=== PATIENT | male | born 1985 | race Caucasian/White ===

== ENCOUNTER 2019-01-25 22:55 | Inpatient (IN) ==
[2019-01-25] MEDS ORDERED: ASPIRIN CHEW 324 MG PO STA (23:10)
[2019-01-25] MEDS ORDERED: METOPROLOL TARTRATE 1 MG/ML VIAL IV STA (23:12)
[2019-01-25 23:23] LABS: Basophils # (auto) 0.01 K/uL (0-0.2); Basophils % (auto) 0.1 %; Eosinophils # (auto) 0.11 K/uL (0-0.5); Eosinophils % (auto) 1.1 %; Hematocrit (blood only) 45.2 % (42-52); Hemoglobin 16.2 g/dL (14.0-18.0); Immature Granulocytes # (auto) 0.04 K/uL (0.00-0.02); Immature Granulocytes % (auto) 0.4 %; Lymphocytes # (auto) 3.52 K/uL (1.2-3.4); Lymphocytes % (auto) 33.9 %; Mean Corpuscular Hemoglobin 31.1 pg (25-34); Mean Corpuscular Hgb Conc 35.8 g/dL (32-36); Mean Corpuscular Volume 86.8 fL (80-100); Mean Platelet Volume 9.6 fL (7.4-10.4); Monocytes # (auto) 0.66 K/uL (0.11-0.59); Monocytes % (auto) 6.4 %; Neutrophils # (auto) 6.05 K/uL (1.4-6.5); Neutrophils % (auto) 58.1 %; Platelet Count 233 K/uL (130-400); RDW Coefficient of Variation 11.5 % (11.5-14.5); RDW Standard Deviation 36.7 fL (36.4-46.3); Red Blood Count 5.21 M/uL (4.7-6.1); White Blood Count 10.39 K/uL (4.8-10.8)
[2019-01-25 23:35] LABS: Partial Thromboplastin Time 25.9 Seconds (21.0-31.0); Prothrombin Time 10.6 Seconds (9.0-12.0)
[2019-01-25 23:44] LABS: Alanine Aminotransferase 23 U/L (12-78); Albumin Level 4.2 gm/dl (3.4-5.0); Aspartate Aminotransferase 15 U/L (15-37); BUN Creatinine Ratio 13.8 (10-20); Blood Urea Nitrogen 17 mg/dl (7-18); Calcium 9.1 mg/dl (8.5-10.1); Carbon Dioxide 29 mmol/L (21-32); Chloride 101 mmol/L (98-107); Creatinine Clr Calc Pharmacy 97.4 ml/min; Est GFR (African American) 89.5; Est GFR (Non-African American) 77.2; Glucose 96 mg/dl (70-99); Magnesium 2.2 mg/dl (1.8-2.4); Potassium 3.6 mmol/L (3.5-5.1); Sodium 138 mmol/L (136-145)
[2019-01-25 23:55] LABS: Alkaline Phosphatase 67 U/L (45-117); Bilirubin,Total 0.4 mg/dl (0.2-1); Globulin 4.2 gm/dl (2.5-4.0); Total Protein 8.4 gm/dl (6.4-8.2); Troponin I < 0.015 ng/ml (0-0.045)
[2019-01-26] MEDS: METOPROLOL TARTRATE 1 MG/ML VIAL IV PRN ×2 (00:01→00:21)
--- NOTE | 2019-01-26 00:25 | Emergency Department Note ---
Entered by Corona Miramontes acting as a scribe for History of Present Illness General Chief complaint: Arrhythmia/Palpitations Stated complaint: IRREGULAR HEARTBEAT Source: patient History of Present Illness Onset (ago): minute(s) 30 Location: chest Pain Consistency: + constant Quality: + other (irregular heart beat) Associated symptoms: + other (Negative for chest pain. Positive for a "stitch under his rib cage.") The patient is a 33 year old male who presents to the emergency department with complaints of a constant irregular heart beat beginning a half hour ago. The patient states that he and his were "being intimate" tonight, noting that afterwards, he noticed that he had an irregular heart beat that felt like muscle spasms. He reports that he had a similar episode 4 days ago. The patient states he has a "stitch under his rib cage" that has been there since yesterday. He notes that he is currently cutting back on his caffeine. He reports that he strained a chest muscle last week at the gym, but he states that his chest pain has resolved. Home Medications Home Medications Medication Instructions Recorded Confirmed Type fluticasone propionate 2 spray INTRANASAL DAILY 01/26/19 01/26/19 History loratadine 10 mg PO DAILY 01/26/19 01/26/19 History metoprolol succinate 25 mg PO QAM 30 Days #30 tab 01/26/19 Rx Allergies Allergy/AdvReac Type Severity Reaction Status Date / Time No Known Allergies Allergy Unverified 01/26/19 00:38 Past Med/Surg History Medical History No chronic problems Family History Other No significant family history Social History Preferred Language: Korean Communication Ability: Effective Turkey Boner Required: No Beliefs That Will Affect Care: None Current Living Situation: Spouse Other Information That Helps Us Care for You: No Feels Safe at Home: Yes Safety Concerns: Feels Safe At This Time Smoking Status: Never smoker Do You Dip or Chew Tobacco: No ; Hx Alcohol Use: No Hx Substance Use: No Review of Systems See HPI for pertinent positives & negatives. and A total of 10 systems reviewed and were otherwise negative Physical Exam Vital Signs Vital Signs - 24 hr 01/25/19 22:58 01/25/19 23:06 01/25/19 23:08 Temperature 36.7 C Temperature Source Oral Sepsis Action Taken by Nursing No Action Required Pulse Rate 98 H 142 H 165 H Pulse Rate [Apical] Pulse Rate from SpO2 Sensor 100 H 97 H Respiratory Rate 20 18 25 H Blood Pressure 129/93 145/87 H Blood Pressure [Right Arm] Blood Pressure Mean 105 106 Blood Pressure Mean [Right Arm] Pulse Oximetry 100 100 95 Oxygen Delivery Method Room Air 01/25/19 23:21 01/25/19 23:22 01/25/19 23:32 Temperature Temperature Source Sepsis Action Taken by Nursing Pulse Rate 145 H 140 H 140 H Pulse Rate [Apical] Pulse Rate from SpO2 Sensor 84 82 Respiratory Rate 12 23 Blood Pressure 145/87 H 155/71 H Blood Pressure [Right Arm] Blood Pressure Mean 99 Blood Pressure Mean [Right Arm] Pulse Oximetry 100 100 Oxygen Delivery Method 01/25/19 23:33 01/25/19 23:34 01/26/19 00:00 Temperature Temperature Source Sepsis Action Taken by Nursing Pulse Rate 121 H 131 H 108 H Pulse Rate [Apical] Pulse Rate from SpO2 Sensor 76 83 79 Respiratory Rate 18 16 16 Blood Pressure 118/83 102/75 Blood Pressure [Right Arm] Blood Pressure Mean 94 84 Blood Pressure Mean [Right Arm] Pulse Oximetry 100 100 96 Oxygen Delivery Method 01/26/19 00:01 01/26/19 00:10 01/26/19 00:14 Temperature Temperature Source Sepsis Action Taken by Nursing Pulse Rate 122 H 115 H Pulse Rate [Apical] 97 H Pulse Rate from SpO2 Sensor 79 85 Respiratory Rate 15 14 25 H Blood Pressure 102/75 130/77 Blood Pressure [Right Arm] 130/78 Blood Pressure Mean 94 Blood Pressure Mean [Right Arm] 95 Pulse Oximetry 98 98 Oxygen Delivery Method Room Air 01/26/19 00:15 01/26/19 00:21 01/26/19 00:30 Temperature Temperature Source Sepsis Action Taken by Nursing Pulse Rate 107 H 109 H 117 H Pulse Rate [Apical] Pulse Rate from SpO2 Sensor 76 74 Respiratory Rate 20 15 Blood Pressure 130/77 Blood Pressure [Right Arm] Blood Pressure Mean Blood Pressure Mean [Right Arm] Pulse Oximetry 98 96 Oxygen Delivery Method 01/26/19 00:44 01/26/19 01:00 01/26/19 01:01 Temperature Temperature Source Sepsis Action Taken by Nursing Pulse Rate 106 H 73 73 Pulse Rate [Apical] Pulse Rate from SpO2 Sensor 69 59 L 74 Respiratory Rate 17 15 16 Blood Pressure 116/70 104/65 Blood Pressure [Right Arm] Blood Pressure Mean 85 78 Blood Pressure Mean [Right Arm] Pulse Oximetry 97 95 95 Oxygen Delivery Method 01/26/19 01:30 Temperature Temperature Source Sepsis Action Taken by Nursing Pulse Rate 77 Pulse Rate [Apical] Pulse Rate from SpO2 Sensor 75 Respiratory Rate 15 Blood Pressure 108/55 L Blood Pressure [Right Arm] Blood Pressure Mean 72 Blood Pressure Mean [Right Arm] Pulse Oximetry 97 Oxygen Delivery Method Vital signs reviewed. General: Well-appearing 33 year old male, in no significant distress. HEENT: No scleral icterus, PERRLA, neck supple. Atraumatic. Cardiovascular: Rapid and irregular, no extra sounds. Pulmonary: Clear to auscultation bilaterally, normal work of breathing. Abdomen: Soft, nontender, nondistended, positive bowel sounds. Musculoskeletal: Atraumatic, no peripheral edema. Neurologic: Patient awake alert and oriented x 3 Skin: Warm, dry, no rash Course 2307: The patient was evaluated in room B3. A complete history and physical exam was performed. 0130: I rechecked the patient. 0200: Upon reevaluation, the patient is stable. I discussed the findings and the treatment plan with the patient. He expresses agreement and understanding. I spoke with Dr. Mcnair of the [facility]. The patient will be evaluated for further management. Consultations Consultation #1: I [facility] the [facility] He will evaluate the patient for further management. Time: 02:00 Administered Medications Discontinued Medications Aspirin (Aspirin) 324 mg PO NOW STA Stop: 01/25/19 23:11 Last Admin: 01/25/19 23:21 Dose: 324 mg Documented by: [id number] Diltiazem HCl (Cardizem) 10 mg IV NOW STA Stop: 01/26/19 00:40 Last Admin: 01/26/19 00:42 Dose: 10 mg Documented by: [id number] Cosigned by: [id number] Fluticasone Propionate (Flonase) 2 sprays NA DAILY STEPHANIE Stop: 02/25/19 08:59 Last Admin: 01/26/19 08:23 Dose: Not Given Documented by: [id number] Heparin Sodium/Dextrose (Heparin Sodium/Dextrose) 25,000 units in 500 mls @ 29 mls/hr IV .[id number] STEPHANIE; Protocol Stop: 02/25/19 02:44 Last Titration: 01/26/19 09:45 Dose: 0 units/hr, 0 mls/hr Documented by: [id number] Cosigned by: [id number] Titration: 01/26/19 07:17 Dose: 1,450 units/hr, 29 mls/hr Documented by: [id number] Cosigned by: [id number] Admin: 01/26/19 03:05 Dose: 1,450 units/hr, 29 mls/hr Documented by: [id number] Cosigned by: [id number] Lactated Ringer's (Lr) 1,000 mls @ 500 mls/hr IV .Q2H ONE Stop: 01/26/19 04:33 Last Infusion: 01/26/19 07:17 Dose: 0 mls/hr Documented by: [id number] Infusion: 01/26/19 04:45 Dose: 0 mls/hr Documented by: [id number] Admin: 01/26/19 04:00 Dose: 500 mls/hr Documented by: [id number] Ioversol (Optiray 320 125ml) 125 ml IV ONCE PRN PRN Reason: Interaction Checking Stop: 01/30/19 03:36 Last Admin: 01/26/19 03:38 Dose: 116 ml Documented by: [id number] Loratadine (Claritin) 10 mg PO DAILY STEPHANIE Stop: 02/25/19 08:59 Last Admin: 01/26/19 08:22 Dose: 10 mg Documented by: [id number] Metoprolol Succinate (Toprol Xl) 25 mg PO QAM STEPHANIE Stop: 02/25/19 09:44 Last Admin: 01/26/19 11:00 Dose: 25 mg Documented by: [id number] Metoprolol Tartrate (Lopressor) 5 mg IV NOW STA Stop: 01/25/19 23:13 Last Admin: 01/25/19 23:21 Dose: 5 mg Documented by: [id number] Metoprolol Tartrate (Lopressor) 5 mg IV Q5M PRN PRN Reason: Tachycardia Stop: 02/24/19 23:54 Last Admin: 01/26/19 00:21 Dose: 5 mg Documented by: [id number] Admin: 01/26/19 00:01 Dose: 5 mg Documented by: [id number] Metoprolol Tartrate (Lopressor) 12.5 mg PO BID STEPHANIE Stop: 02/25/19 02:34 Last Admin: 01/26/19 02:52 Dose: 12.5 mg Documented by: [id number] Metoprolol Tartrate (Lopressor) 12.5 mg PO NOW STA Stop: 01/26/19 04:45 Last Admin: 01/26/19 06:01 Dose: 12.5 mg Documented by: [id number] Pantoprazole S[facility] (Pro[facility]ix) [facility] [place] Stop: 02/25/19 09:14 Last Admin: 01/26/19 09:48 Dose: 40 mg Documented by: [id number] Potassium Chloride (Klor-Con M20) 40 meq PO NOW STA Stop: 01/26/19 01:58 Last Admin: 01/26/19 02:14 Dose: 40 meq Documented by: [id number] Medical Decision Making Differential Diagnosis Differential diagnosis: Etiologies such as shingles, musculoskeletal pain, pericarditis, myocarditis, cardiac ischemia, pericardial tamponade, pneumonia, pneumothorax, pleural effusion, hemothorax, pleurisy, aortic pathology, pulmonary embolism, intra- abdominal process, as well as others were considered. Medical Records Attestation: I reviewed the patient's medical records. Home Medications Current Medication List: was personally reviewed by me Laboratory Data Attestation: I reviewed the patient's lab results. Result diagrams: 01/25/19 23:12 01/25/19 23:12 Lab Results 01/25/19 01/25/19 01/25/19 Range/Units 23:12 23:12 23:12 WBC 10.39 (4.8-10.8) K/uL RBC 5.21 (4.7-6.1) M/uL Hgb 16.2 (14.0-18.0) g/dL Hct 45.2 (42-52) % MCV 86.8 (80-100) fL MCH 31.1 (25-34) pg MCHC 35.8 (32-36) g/dL RDW Std Deviation 36.7 (36.4-46.3) fL RDW Coeff of Tyrese 11.5 (11.5-14.5) % Plt Count 233 (130-400) K/uL MPV 9.6 (7.4-10.4) fL Immature Gran % (Auto) 0.4 % Neut % (Auto) 58.1 % Lymph % (Auto) 33.9 % [place] % (Auto) 6.4 % Eos % (Auto) 1.1 % Baso % (Auto) 0.1 % Immature Gran # (Auto) 0.04 H (0.00-0.02) K/uL Neut # (Auto) 6.05 (1.4-6.5) K/uL Lymph # (Auto) 3.52 H (1.2-3.4) K/uL [place] # (Auto) 0.66 H (0.11-0.59) K/uL Eos # (Auto) 0.11 (0-0.5) K/uL Baso # (Auto) 0.01 (0-0.2) K/uL PT 10.6 (9.0-12.0) Seconds INR 1.0 (0.9-1.1) APTT 25.9 (21.0-31.0) Seconds PTT Ratio 1.0 Sodium 138 (136-145) mmol/L Potassium 3.6 (3.5-5.1) mmol/L Chloride 101 (98-107) mmol/L Carbon Dioxide 29 (21-32) mmol/L Anion Gap 8.0 (3-11) BUN 17 (7-18) mg/dl Creatinine 1.23 (0.6-1.4) mg/dl Est Cr Clr Drug Dosing 97.4 ml/min Est GFR ( Amer) 89.5 Est GFR (Non-Af Amer) 77.2 BUN/Creatinine Ratio 13.8 (10-20) Glucose 96 (70-99) mg/dl Calcium 9.1 (8.5-10.1) mg/dl Magnesium 2.2 (1.8-2.4) mg/dl Total Bilirubin 0.4 (0.2-1) mg/dl AST 15 (15-37) U/L ALT 23 (12-78) U/L Alkaline Phosphatase 67 (45-117) U/L Total Creatine Kinase 172 (39-308) U/L Troponin I < 0.015 (0-0.045) ng/ml Total Protein 8.4 H (6.4-8.2) gm/dl Albumin 4.2 (3.4-5.0) gm/dl Globulin 4.2 H (2.5-4.0) gm/dl Albumin/Globulin Ratio 1.0 (0.9-2) Lipase 207 (73-393) U/L TSH 3.470 (0.300-4.500) uIu/ml Lyme Disease IgG Ab (Negative) Lyme Disease IgM Ab (Negative) 01/25/19 Range/Units 23:12 WBC (4.8-10.8) K/uL RBC (4.7-6.1) M/uL Hgb (14.0-18.0) g/dL Hct (42-52) % MCV (80-100) fL MCH (25-34) pg MCHC (32-36) g/dL RDW Std Deviation (36.4-46.3) fL RDW Coeff of Tyrese (11.5-14.5) % Plt Count (130-400) K/uL MPV (7.4-10.4) fL Immature Gran % (Auto) % Neut % (Auto) % Lymph % (Auto) % [place] % (Auto) % Eos % (Auto) % Baso % (Auto) % Immature Gran # (Auto) (0.00-0.02) K/uL Neut # (Auto) (1.4-6.5) K/uL Lymph # (Auto) (1.2-3.4) K/uL [place] # (Auto) (0.11-0.59) K/uL Eos # (Auto) (0-0.5) K/uL Baso # (Auto) (0-0.2) K/uL PT (9.0-12.0) Seconds INR (0.9-1.1) APTT (21.0-31.0) Seconds PTT Ratio Sodium (136-145) mmol/L Potassium (3.5-5.1) mmol/L Chloride (98-107) mmol/L Carbon Dioxide (21-32) mmol/L Anion Gap (3-11) BUN (7-18) mg/dl Creatinine (0.6-1.4) mg/dl Est Cr Clr Drug Dosing ml/min Est GFR ( Amer) Est GFR (Non-Af Amer) BUN/Creatinine Ratio (10-20) Glucose (70-99) mg/dl Calcium (8.5-10.1) mg/dl Magnesium (1.8-2.4) mg/dl Total Bilirubin (0.2-1) mg/dl AST (15-37) U/L ALT (12-78) U/L Alkaline Phosphatase (45-117) U/L Total Creatine Kinase (39-308) U/L Troponin I (0-0.045) ng/ml Total Protein (6.4-8.2) gm/dl Albumin (3.4-5.0) gm/dl Globulin (2.5-4.0) gm/dl Albumin/Globulin Ratio (0.9-2) Lipase (73-393) U/L TSH (0.300-4.500) uIu/ml Lyme Disease IgG Ab Negative (Negative) Lyme Disease IgM Ab Negative (Negative) Imaging Data Attestation: I personally reviewed and interpreted this imaging study as follows: My Impression: CHEST X-RAY: No infiltrate. No failure. Normal mediastinum. ECG Data Attestation: I personally reviewed and interpreted this ECG as follows: Indication: palpitations Rate (beats per minute): 162 Rhythm: atrial fibrillation (with RVR) Comparison ECG Date: from (10/15/2015) Change: the following changes noted (Compared to prior, Afib has replaced a normal sinus rhythm and ST changes are new.) Additional Comments: Nonspecific ST changes, possible LVH. EKG 2: Done at 0057 on 01/26/2019. Rate controlled Afib 61, PVC, LVH, J point elevation indicative of early repolarization, QTC 372. Blood Pressure Blood Pressure Findings: Normal blood pressure Blood Pressure Disposition: further management by hospitalist MDM Narrative This pt was evaluated and appeared to be in no distress. IV access was obtained and lab work was drawn. PT was placed on the purification operator. IV metoprolol 5 mg was administered with little improvement of HR. Additional doses of IV metoprolol 5 mg x 2 were given, pt remained in afib w RVR from 90- 120bpm. Pt was then given IV cardizem 10 mg with good rate control, but remained in a fib. Lab work is fairly reassuring. Dr Ch of the hospitalist service was consulted for further management. Pt was informed of the findings and is agreeable to plan. Impression & Plan New onset atrial fibrillation Discharge Plan Visit Data *Final* Discharge Date/Time: 01/26/19 03:16 Chief Complaint: Arrhythmia/Palpitations Stated Complaint: IRREGULAR HEARTBEAT ED Provider: Shani Perez Discharge Problem: New onset atrial fibrillation Patient Disposition: Admitted As Inpatient Discharge Instructions Interventions: ED Discharge Assessment Last Done: 01/26/19 03:16 The scribe's documentation has been prepared under my direction and personally reviewed by me in its entirety. I confirm that the note above accurately reflects all work, treatment, procedures, and medical decision making performed by me.
[2019-01-26] MEDS ORDERED: dilTIAZem HCl 5 MG/ML 5 ML VIAL IV STA (00:39)
[2019-01-26] MEDS ORDERED: POTASSIUM CHLORIDE 20 MEQ TABCR PO STA (01:57)
[2019-01-26] MEDS ORDERED: LACTATED RINGER'S 1,000 ML IV ONE (02:34)
[2019-01-26] MEDS ORDERED: Heparin IV Standard *NO* Bolus STA (02:34)
[2019-01-26] MEDS ORDERED: METOPROLOL TARTRATE 25 MG TAB PO SCH ×2 (02:35→21:00)
--- NOTE | 2019-01-26 02:36 | History & Physical Report ---
Date of Service January 26, 2019 Assessment & Plan (1) New onset atrial fibrillation: Rule out PE as possible precipitant given pleuritic subcostal complaints PCU Lopressor for rate control IV heparin for thromboembolic prophylaxis CT chest PE study TTE, Cardiology consult RE new onset A. fib DVT prophylaxis. Heparin Full code History of Present Illness Chief Complaint: Palpitations Primary Care Provider: Luis Eduardo Hector MD History obtained from patient and records. Medical history significant for allergic rhinitis, migraine. Recent confinement under ENT service November 2011 for R parotidectomy for pleomorphic adenoma. 4 days ago patient was watching television when he felt transient palpitations lasting about 30 seconds associated with spasm-like discomfort in the left chest nonradiating. Spontaneous resolution. Some chest soreness after workout in the gym last week. Transient palpitations on 2 occasions in the last 12 years as per patient recollection. Patient consulted urgent care center 3 days ago for unusual heartbeat episode. EKG showed sinus bradycardia as per outpatient note. Consideration for Holter monitoring in the future. Patient and were having sex last night when he noted recurrence of uncomfortable palpitations this time associated with pleuritic right subcostal discomfort and shortness of breath. No cough symptoms. Usual caffeine intake, denies alcohol intake this week, usual stress at home/work, antihistaminic intake for allergies. At the ER, patient noted to be in rapid A. fib, cardiac rate 90-160s. Cardiac rate currently 90s after IV Metoprolol, Cardizem administration. Patient still uncomfortable from irregular heartbeat. 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 Allergies Allergy/AdvReac Type Severity Reaction Status Date / Time No Known Allergies Allergy Unverified 01/26/19 00:38 Home Medications Home Medications Medication Instructions Recorded Confirmed Type fluticasone propionate 2 spray INTRANASAL DAILY 01/26/19 01/26/19 History loratadine 10 mg PO DAILY 01/26/19 01/26/19 History metoprolol succinate 25 mg PO QAM 30 Days #30 tab 01/26/19 Rx Past Med/Surg History Medical History No chronic problems Family History Other No significant family history Social History Preferred Language: Guyanese Communication Ability: Effective Route Deliverer Required: No Beliefs That Will Affect Care: None Current Living Situation: Spouse Other Information That Helps Us Care for You: No Feels Safe at Home: Yes Safety Concerns: Feels Safe At This Time Smoking Status: Never smoker Do You Dip or Chew Tobacco: No ; Hx Alcohol Use: No Hx Substance Use: No Review of Systems Review of Systems: As per HPI, all 10 systems reviewed, all other ROS negative Physical Exam Physical Exam: GENERAL: Comfortable, pleasant, slightly anxious, no respiratory distress SKIN: Normal color, warm HEENT: [place] palpebral conjunctivae, no ptosis, dry buccal mucosa NECK : Supple, no tenderness CHEST : CTA, no tenderness HEART : Tachycardic, irregular, no obvious murmurs ABDOMEN: Some distention, R upper quadrant tenderness EXTREMITIES : No LE swelling/tenderness, no other conspicuous deformities noted NEUROLOGIC : Coherent, no facial asymmetry, no other gross focality Results & Data Vital Signs (Past 12 Hours) Vital Signs Temp Pulse Pulse Resp BP BP Pulse Ox 01/26/19 01:30 77 15 108/55 L 97 01/26/19 01:01 73 16 95 01/26/19 01:00 73 15 104/65 95 01/26/19 00:44 106 H 17 116/70 97 01/26/19 00:30 117 H 15 96 01/26/19 00:21 109 H 130/77 01/26/19 00:15 107 H 20 98 01/26/19 00:14 115 H 25 H 130/77 98 01/26/19 00:10 97 H 14 130/78 98 01/26/19 00:01 122 H 15 102/75 01/26/19 00:00 108 H 16 102/75 96 01/25/19 23:34 131 H 16 100 01/25/19 23:33 121 H 18 118/83 100 01/25/19 23:32 140 H 23 100 01/25/19 23:22 140 H 12 155/71 H 100 01/25/19 23:21 145 H 145/87 H 01/25/19 23:08 165 H 25 H 95 01/25/19 23:06 142 H 18 145/87 H 100 01/25/19 22:58 36.7 C 98 H 20 129/93 100 Laboratory Results Laboratory Results WBC 10.39 K/uL (4.8-10.8) 01/25/19 23:12 RBC 5.21 M/uL (4.7-6.1) 01/25/19 23:12 Hgb 16.2 g/dL (14.0-18.0) 01/25/19 23:12 Hct 45.2 % (42-52) 01/25/19 23:12 MCV 86.8 fL (80-100) 01/25/19 23:12 MCH 31.1 pg (25-34) 01/25/19 23:12 MCHC 35.8 g/dL (32-36) 01/25/19 23:12 RDW Std Deviation 36.7 fL (36.4-46.3) 01/25/19 23:12 RDW Coeff of Tyrese 11.5 % (11.5-14.5) 01/25/19 23:12 Plt Count 233 K/uL (130-400) 01/25/19 23:12 MPV 9.6 fL (7.4-10.4) 01/25/19 23:12 Immature Gran % (Auto) 0.4 % 01/25/19 23:12 Neut % (Auto) 58.1 % 01/25/19 23:12 Lymph % (Auto) 33.9 % 01/25/19 23:12 [place] % (Auto) 6.4 % 01/25/19 23:12 Eos % (Auto) 1.1 % 01/25/19 23:12 Baso % (Auto) 0.1 % 01/25/19 23:12 Immature Gran # (Auto) 0.04 K/uL (0.00-0.02) H 01/25/19 23:12 Neut # (Auto) 6.05 K/uL (1.4-6.5) 01/25/19 23:12 Lymph # (Auto) 3.52 K/uL (1.2-3.4) H 01/25/19 23:12 [place] # (Auto) 0.66 K/uL (0.11-0.59) H 01/25/19 23:12 Eos # (Auto) 0.11 K/uL (0-0.5) 01/25/19 23:12 Baso # (Auto) 0.01 K/uL (0-0.2) 01/25/19 23:12 PT 10.6 Seconds (9.0-12.0) 01/25/19 23:12 INR 1.0 (0.9-1.1) 01/25/19 23:12 APTT 25.9 Seconds (21.0-31.0) 01/25/19 23:12 PTT Ratio 1.0 01/25/19 23:12 Sodium 138 mmol/L (136-145) 01/25/19 23:12 Potassium 3.6 mmol/L (3.5-5.1) 01/25/19 23:12 Chloride 101 mmol/L (98-107) 01/25/19 23:12 Carbon Dioxide 29 mmol/L (21-32) 01/25/19 23:12 Anion Gap 8.0 (3-11) 01/25/19 23:12 BUN 17 mg/dl (7-18) 01/25/19 23:12 Creatinine 1.23 mg/dl (0.6-1.4) 01/25/19 23:12 Est Cr Clr Drug Dosing 97.4 ml/min 01/25/19 23:12 Est GFR ( Amer) 89.5 01/25/19 23:12 Est GFR (Non-Af Amer) 77.2 01/25/19 23:12 BUN/Creatinine Ratio 13.8 (10-20) 01/25/19 23:12 Glucose 96 mg/dl (70-99) 01/25/19 23:12 Calcium 9.1 mg/dl (8.5-10.1) 01/25/19 23:12 Magnesium 2.2 mg/dl (1.8-2.4) 01/25/19 23:12 Total Bilirubin 0.4 mg/dl (0.2-1) 01/25/19 23:12 AST 15 U/L (15-37) 01/25/19 23:12 ALT 23 U/L (12-78) 01/25/19 23:12 Alkaline Phosphatase 67 U/L (45-117) 01/25/19 23:12 Troponin I < 0.015 ng/ml (0-0.045) 01/25/19 23:12 Total Protein 8.4 gm/dl (6.4-8.2) H 01/25/19 23:12 Albumin 4.2 gm/dl (3.4-5.0) 01/25/19 23:12 Globulin 4.2 gm/dl (2.5-4.0) H 01/25/19 23:12 Albumin/Globulin Ratio 1.0 (0.9-2) 01/25/19 23:12 TSH 3.470 uIu/ml (0.300-4.500) 01/25/19 23:12 Diagnostic Findings Chest x-ray as per my interpretation no cardiomegaly/congestion: EKG as per my interpretation : Rate 60, normal axis, A. fib, J-point elevation anterior lateral leads, LVH, PVCs
[2019-01-26] MEDS ORDERED: HEPARIN SODIUM/DEXTROSE 25,000 UNITS/500 ML BAG IV SCH (02:45)
[2019-01-26] MEDS ORDERED: HEPARIN 25000 UNIT/500 ML D5W IV ONE (02:46)
[2019-01-26 02:59] LABS: Creatine Kinase 172 U/L (39-308)
[2019-01-26 03:23] LABS: Lipase 207 U/L (73-393)
[2019-01-26] MEDS ORDERED: OPTIRAY 320 125ml IV PRN (03:37)
[2019-01-26 03:55] VITALS: O2SAT 96
[2019-01-26 04:40] LABS: Lyme Ab IgG w/WB Rflx Negative (Negative); Lyme Ab IgM w/WB Rflx Negative (Negative)
[2019-01-26] MEDS ORDERED: METOPROLOL TARTRATE 25 MG TAB PO STA (04:44)
--- NOTE | 2019-01-26 07:03 | XRay Report ---
XR chest 1V portable HISTORY: Atrial fibrillation. COMPARISON: None. FINDINGS: The lungs are clear. Cardiac silhouette is normal in size. No pleural effusions. No pneumot horax. IMPRESSION: No acute process. Electronically signed by: Chay Yoder M.D. 01/26/2019 7:02 AM
[2019-01-26] MEDS ORDERED: LORazepam 0.25 MG/0.5 ML VIAL IV PRN (07:09)
[2019-01-26] MEDS ORDERED: ACETAMINOPHEN 325 MG TAB PO PRN (07:09)
[2019-01-26] MEDS ORDERED: TRAMADOL HCL 50 MG TABLET PO PRN (07:09)
[2019-01-26] MEDS ORDERED: PROMETHAZINE HCL 12.5 MG in SODIUM CHLORIDE 0.9% 50 ML IV PRN (07:09)
[2019-01-26 07:26] LABS: Appearance Urine Clear (Clear); Bilirubin Urine Negative (Negative); Blood Urine Negative (Negative); Color Urine Yellow; Glucose Urine UA Negative (Negative); Ketones Urine Negative (Negative); Leukocyte Esterase Urine Negative (Negative); Nitrite Urine Negative (Negative); Protein Urine Negative (Negative); Specific Gravity Urine 1.018 (1.000-1.030); Urobilinogen Urine Negative (Negative); pH Urine 7.5 (4.5-7.5)
--- NOTE | 2019-01-26 07:33 | CT Scan Report ---
CHEST CTA for PULMONARY ARTERIES CT DOSE: 358.28 mGy.cm HISTORY: Atrial fibrillation. Assess for pulmonary embolus. TECHNIQUE: Multiaxial CT images of the chest were performed following the intravenous administration of contrast to evaluate the pulmonary arteries. Maximal intensity projection images were also obtaine d. A dose lowering technique was utilized adhering to the principles of ALARA. COMPARISON STUDY: None. FINDINGS: There is a normal caliber thoracic aorta with no evidence for dissection. There is no evide nce for pulmonary embolus. No pleural effusions. No pneumothorax. The liver and spleen are unremarkab le. No mediastinal or hilar lymphadenopathy. The central airways are patent. The lungs are clear. The main pulmonary artery is mildly dilated at 3.4 cm. This raises the possibility of pulmonary arterial hypertension. The heart is normal in size. IMPRESSION: 1. No evidence for pulmonary embolus. 2. Mildly dilated main pulmonary artery measuring 3.4 cm in diameter. This raises the possibility of pulmonary arterial hypertension. Follow-up nonemergent echocardiogram is recommended for further eval uation. Electronically signed by: Chay Yoder M.D. 01/26/2019 7:31 AM
[2019-01-26 07:54] LABS: Amphetamines+Metham, Urine Neg (Neg); Barbiturates, Urine Neg (Neg); Benzodiazepine, Urine Neg (Neg); Cocaine, Urine Neg (Neg); MDMA (Ecstacy), Urine Neg (Neg); Methadone, Urine Neg (Neg); Opiate, Urine Neg (Neg); Phencyclidine, Urine Neg (Neg)
[2019-01-26 08:17] VITALS: BP 107/72; TEMP 98.2
--- NOTE | 2019-01-26 08:43 | Cardiology Consultation ---
Date of Consultation January 26, 2019 Assessment & Plan (1) New onset atrial fibrillation: 33-year-old male presented with atrial fibrillation rapid ventricular response, onset at home at approximately 10:30 PM 01/25/2019, he converted to sinus rhythm spontaneously this morning 01/26/2019 at 6:34 AM. He was therefore in atrial fibrillation less than 12 hours. He believes he had similar symptoms for just a few seconds a few days ago. His [id number] score is 0 predicting a low risk of cardio embolic stroke. Repeat EKG performed today 01/26/2019 reveals normal sinus rhythm at 62 bpm with evidence of high voltage and early repolarization, and I believe this is consistent with the patient's thin body habitus. A bedside echocardiogram was performed, and my preliminary review of the images reveals normal LVEF, with normal myocardial thickness, there is no evidence of underlying left ventricular hypertrophy. CT scan recent question of mild dilatation of the pulmonary artery at 3.4 cm. There is no stigmata of pulmonary hypertension noted on his echocardiogram with normal right ventricular chamber size and systolic function. At this time, I would classify the patient's atrial fibrillation is being lone atrial fibrillation or perhaps paroxysmal atrial fibrillation given his history of palpitations about 5 days ago. His recent chest discomfort sounds like it is musculoskeletal. His mother has a history of bicuspid aortic valve with aortic valve replacement at the age of 50, his aortic valve is trileaflet morphology without any significant stenosis or regurgitation. In terms of stroke prophylaxis, I recommend discontinuation of his heparin. Given his low predicted risk of cardio embolic stroke, I do not think he needs to be on anticoagulation therapy. The most recent atrial fibrillation guidelines suggest that the prophylactic benefit of aspirin in patients with paroxysmal atrial fibrillation is negligible, and therefore it is no longer recommended. Would recommend discharging the patient on metoprolol succinate 25 mg by mouth daily. Disposition: I have requested an outpatient 7-day 0 bus monitor to be placed after he has been on the metoprolol for about a week, on 02/02/2019 or shortly thereafter. I have requested a cardiology follow-up with me or 1 of my colleagues and 3 to [address] we have the results of the monitor afterward. The mother will be helpful in terms of determining his underlying atrial fibrillation burden. We discussed that he should minimize his alcohol and caffeine use, but it sounds like he already abides by this. He is going to reduce his stress this weekend, and he is going to have a colleague of his breech on Tuesday. The above was discussed in the company of his spouse. Questions were answered to the patient's satisfaction. If he has recurrent epis odes while on beta-dionicio therapy, I think it would be a reasonable candidate for flecainide therapy on a chronic basis for rhythm suppression. He is stable for discharge from my standpoint. I have discontinued his heparin. History of Present Illness Attending Physician: Rosalio Hardin MD History of Present Illness Andrew Santana is a 33 year old male seen in cardiology consultation per the request of Dr. Bradford for the evaluation of palpitations with findings of atrial fibrillation with rapid ventricular response. 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 He states that last evening 01/25/2019 at 1030, he felt an abrupt onset of heart "fluttering". This persisted prompting him to come to the emergency room. EKG performed on arrival to the emergency room revealed atrial fibrillation with rapid ventricular response 162 bpm. LVH noted by voltage criteria, with ST segment depression suggestive of rate related ischemia, versus LVH with strain pattern. Medication therapy overnight included starting a heparin infusion for stroke prophylaxis, he also received 10 mg of IV diltiazem, and 12.5 mg of oral metoprolol with improved rate control. Repeat EKG performed at 12:57 AM revealed atrial fibrillation, with improved rate control, ventricular rate 62 beats per minute with 1 PVC versus PAC with aberrant conduction, ongoing suggestion of LVH by voltage criteria with diffuse J-point elevation consistent with early repolarization. Review of telemetry reveals that he converted to sinus rhythm this morning at 634, without significant conversion pause. He is currently feeling well. He states that he had initially felt similar symptoms 5 days ago on Tuesday, went for 30 seconds he felt a similar fluttering. He also notes recent chest discomfort when he takes a deep breath in. He notes that 12 days ago he had been performing weight training at the gym. He did chest dips, which he does on occasion, but have not been part of his routine recently, and he felt that he had strained something in his chest. He also notes that he has a history of passing out spells with past symptoms consistent with vasovagal syncope. His father also has this. He describes a recent episode where he was eating spicy chicken wings and he had his symptoms consistent with his gastro esophageal reflux disease, he felt heavy perspiration, and felt like he was going to pass out. Past Medical History: 1. 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 2. Seasonal allergies 3. GERD 4. (vasovagal) syncope Family History: Mother, alive at about age 55, had h/o aortic valve replacement surgery at the age of 50 with history of congenitally bicuspid aortic valve. Also has atrial fibrillation and is on sotalol. 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 Non-smoker. Allergies Allergy/AdvReac Type Severity Reaction Status Date / Time No Known Allergies Allergy Unverified 01/26/19 00:38 Home Medications Home Medications Medication Instructions Recorded Confirmed Type fluticasone propionate 2 spray INTRANASAL DAILY 01/26/19 01/26/19 History loratadine 10 mg PO DAILY 01/26/19 01/26/19 History Patient History Medical History No chronic problems Family History Other No significant family history Social History Preferred Language: Hebrew Communication Ability: Effective Underground Drill Operator Required: No Beliefs That Will Affect Care: None Current Living Situation: Spouse Other Information That Helps Us Care for You: No Feels Safe at Home: Yes Safety Concerns: Feels Safe At This Time Smoking Status: Never smoker Do You Dip or Chew Tobacco: No ; Hx Alcohol Use: No Hx Substance Use: No Review of Systems Review of Systems: All systems reviewed & are unremarkable except as noted in HPI & below Physical Exam Physical Exam: Temp Pulse Resp BP Pulse Ox 36.8 C 64 16 107/72 96 01/26/19 07:15 01/26/19 07:15 01/26/19 07:15 01/26/19 07:15 01/26/19 07:15 Constitutional: WD/WN, vitals as above Respiratory: normal respiratory effort, lungs clear to auscultation Cardiovascular: RRR, no murmur, no edema Gastrointestinal (Abdomen): normal bowel sounds, soft, nontender, no hepatosplenomegaly Skin: no rashes, warm and dry Neurologic: PERRL, EOMI, accommodation nl, no face palsy, no dysarthria Psychiatric: A+Ox3, euthymic affect Results & Data Vital Signs (Past 12 Hours) Vital Signs Temp Pulse Pulse Resp BP BP Pulse Ox 01/26/19 07:15 36.8 C 64 16 107/72 96 01/26/19 03:46 37 C 109 H 18 119/82 96 01/26/19 03:01 98 H 13 01/26/19 03:00 105 H 23 113/82 97 01/26/19 02:31 86 19 99 01/26/19 02:30 89 15 109/82 98 01/26/19 02:20 87 21 108/79 98 01/26/19 02:01 104 H 15 96 01/26/19 02:00 96 H 16 104/69 96 01/26/19 01:30 77 15 108/55 L 97 01/26/19 01:01 73 16 95 01/26/19 01:00 73 15 104/65 95 01/26/19 00:44 106 H 17 116/70 97 01/26/19 00:30 117 H 15 96 01/26/19 00:21 109 H 130/77 01/26/19 00:15 107 H 20 98 01/26/19 00:14 115 H 25 H 130/77 98 01/26/19 00:10 97 H 14 130/78 98 01/26/19 00:01 122 H 15 102/75 01/26/19 00:00 108 H 16 102/75 96 01/25/19 23:34 131 H 16 100 01/25/19 23:33 121 H 18 118/83 100 01/25/19 23:32 140 H 23 100 01/25/19 23:22 140 H 12 155/71 H 100 01/25/19 23:21 145 H 145/87 H 01/25/19 23:08 165 H 25 H 95 01/25/19 23:06 142 H 18 145/87 H 100 01/25/19 22:58 36.7 C 98 H 20 129/93 100 Laboratory Results Cardiac Enzymes 01/25/19 Range/Units 23:12 AST 15 (15-37) U/L Troponin I < 0.015 (0-0.045) ng/ml Coagulation 01/25/19 Range/Units 23:12 PT 10.6 (9.0-12.0) Seconds APTT 25.9 (21.0-31.0) Seconds CBC 01/25/19 Range/Units 23:12 WBC 10.39 (4.8-10.8) K/uL RBC 5.21 (4.7-6.1) M/uL Hgb 16.2 (14.0-18.0) g/dL Hct 45.2 (42-52) % Plt Count 233 (130-400) K/uL Neut # (Auto) 6.05 (1.4-6.5) K/uL Lymph # (Auto) 3.52 H (1.2-3.4) K/uL [place] # (Auto) 0.66 H (0.11-0.59) K/uL Eos # (Auto) 0.11 (0-0.5) K/uL Baso # (Auto) 0.01 (0-0.2) K/uL Comprehensive Metabolic Panel 01/25/19 Range/Units 23:12 Sodium 138 (136-145) mmol/L Potassium 3.6 (3.5-5.1) mmol/L Chloride 101 (98-107) mmol/L Carbon Dioxide 29 (21-32) mmol/L BUN 17 (7-18) mg/dl Creatinine 1.23 (0.6-1.4) mg/dl Glucose 96 (70-99) mg/dl Calcium 9.1 (8.5-10.1) mg/dl AST 15 (15-37) U/L ALT 23 (12-78) U/L Alkaline Phosphatase 67 (45-117) U/L Total Protein 8.4 H (6.4-8.2) gm/dl Albumin 4.2 (3.4-5.0) gm/dl Intake and Output 01/25/19 01/26/19 01/26/19 22:59 06:59 14:59 Intake Total 375 / 375 121.8 / 121.8 Output Total 1100 / 1100 Balance -725 / -725 121.8 / 121.8 Intake: IV 375 / 375 121.8 / 121.8 HEPARIN SODIUM/DEXTROSE 25,000 121.8 / 121.8 units In 500 ml @ 1,450 UNITS/ HR 29 mls/hr IV .[id number] [facility] Rx #:[id number] Lr 1,000 ml @ 500 mls/hr IV . 375 / 375 0 / 0 Q2H ONE Rx#:[id number] Output: Urine 1100 / 1100 Other: Other Intake Source Sips Weight 83.2 kg 83.2 kg Diagnostic Findings EKG tracings, as outlined above. Medications Administered Current Inpatient Medications Acetaminophen (Tylenol) 650 mg PO Q4H PRN PRN Reason: Pain or Fever Stop: 02/25/19 07:08 Fluticasone Propionate (Flonase) 2 sprays NA DAILY [facility] Stop: 02/25/19 08:59 Last Admin: 01/26/19 08:23 Dose: Not Given Documented by: Heparin Sodium/Dextrose (Heparin Sodium/Dextrose) 25,000 units in 500 mls @ 29 mls/hr IV .[id number] [facility]; Protocol Stop: 02/25/19 02:44 Last Titration: 01/26/19 07:17 Dose: 1,450 units/hr, 29 mls/hr Documented by: Lorazepam (Ativan) 0.25 mg in 0.5 mls @ 0.5 mls/min IV Q4H PRN PRN Reason: Anxiety Stop: 02/25/19 07:08 Promethazine HCl 12.5 mg/ (Sodium Chloride) 50.5 mls @ 202 mls/hr IV Q6H PRN PRN Reason: Nausea And Vomiting Stop: 02/25/19 07:08 Loratadine (Claritin) 10 mg PO DAILY [facility] Stop: 02/25/19 08:59 Last Admin: 01/26/19 08:22 Dose: 10 mg Documented by: Metoprolol Tartrate (Lopressor) 25 mg PO BID [facility] Stop: 02/25/19 20:59 Tramadol HCl (Ultram) 25 - 50 mg PO Q4H PRN PRN Reason: Pain Stop: 02/25/19 07:08
[2019-01-26] MEDS ORDERED: LORATADINE 10 MG TAB PO SCH (09:00)
[2019-01-26] MEDS ORDERED: FLUTICASONE PROPIONATE NA SPR 16 GM BTL SCH (09:00)
[2019-01-26] MEDS ORDERED: PANTOprazole 40 MG TAB PO SCH (09:15)
[2019-01-26] MEDS ORDERED: METOPROLOL SUCC 25MG EXT REL TAB PO SCH (09:45)
--- NOTE | 2019-01-26 10:18 | Hospitalist Progress Note ---
Date of Service January 26, 2019 Assessment & Plan (1) New onset atrial fibrillation: CT Chest: No pulmonary embolism Echo: per Dr. Edward- High Worker: A bedside echocardiogram was performed, and my preliminary review of the images reveals normal LVEF, with normal myocardial thickness, there is no evidence of underlying left ventricular hypertrophy. -- converted to sinus rhythm the next day High Worker Dr. Edward consulted, recommend Metoprolol XL 25mg po daily, manager monitoring in 1 week c/o Cardiology clinic Follow up with [facility] in 3-4 weeks Disposition ff up with PCP as outlined in DC instructions ff up with [facility] High Worker as outlined above plan of care discussed with patient and his at bedside in detail they are comfortable, understanding with the plan of care Subjective ff up for atrial fibrillation patient converted to sinus rhythm this morning seen resting in bed, comfortable, in good spirits states he feels fine overall denies chest pain, palpitations, dyspnea, dizziness ambulating with no problems no bleeding states he is mostly back to his baseline states he is ready and would like to be discharged today Review of Systems Review of Systems: All systems reviewed & are unremarkable except as noted in HPI & below Physical Exam Physical Exam: General- oriented x 3, not in distress, speaks in sentences with no effort or accessory muscle use Head- atraumatic Eyes- PERRL, EOMI, anicteric ENT- oropharynx clear Neck- supple, no JVD, no adenopathy, no thyromegaly; carotids +2/2, no bruits appreciated Lungs- clear to auscultation bilaterally, no rales/wheezes Heart- normal rate, regular rhythm; no murmur, no gallop, no rub appreciated Abdomen- normal bowel sounds, nondistended, soft, nontender, no masses or hepatosplenomegaly Extremities- no pretibial edema, no calf tenderness; peripheral pulses intact Neuro- alert, oriented x 3; CN 2-12 grossly intact; motor 5/5 bilaterally;sensation 100% on all extremities; no other gross focal neurologic deficits Skin- warm & dry Results & Data Vital Signs (Past 12 Hours) Vital Signs Temp Pulse Pulse Resp BP BP Pulse Ox 01/26/19 09:38 111 H 01/26/19 07:15 36.8 C 64 16 107/72 96 01/26/19 03:46 37 C 109 H 18 119/82 96 01/26/19 03:01 98 H 13 01/26/19 03:00 105 H 23 113/82 97 01/26/19 02:31 86 19 99 01/26/19 02:30 89 15 109/82 98 01/26/19 02:20 87 21 108/79 98 01/26/19 02:01 104 H 15 96 01/26/19 02:00 96 H 16 104/69 96 01/26/19 01:30 77 15 108/55 L 97 01/26/19 01:01 73 16 95 01/26/19 01:00 73 15 104/65 95 01/26/19 00:44 106 H 17 116/70 97 01/26/19 00:30 117 H 15 96 01/26/19 00:21 109 H 130/77 01/26/19 00:15 107 H 20 98 01/26/19 00:14 115 H 25 H 130/77 98 01/26/19 00:10 97 H 14 130/78 98 01/26/19 00:01 122 H 15 102/75 01/26/19 00:00 108 H 16 102/75 96 01/25/19 23:34 131 H 16 100 01/25/19 23:33 121 H 18 118/83 100 01/25/19 23:32 140 H 23 100 01/25/19 23:22 140 H 12 155/71 H 100 01/25/19 23:21 145 H 145/87 H 01/25/19 23:08 165 H 25 H 95 01/25/19 23:06 142 H 18 145/87 H 100 01/25/19 22:58 36.7 C 98 H 20 129/93 100 Laboratory Results Laboratory Results - last 24 hr 01/25/19 01/25/19 01/25/19 23:12 23:12 23:12 WBC 10.39 RBC 5.21 Hgb 16.2 Hct 45.2 MCV 86.8 MCH 31.1 MCHC 35.8 RDW Std Deviation 36.7 RDW Coeff of Tyrese 11.5 Plt Count 233 MPV 9.6 Immature Gran % (Auto) 0.4 Neut % (Auto) 58.1 Lymph % (Auto) 33.9 [place] % (Auto) 6.4 Eos % (Auto) 1.1 Baso % (Auto) 0.1 Immature Gran # (Auto) 0.04 H Neut # (Auto) 6.05 Lymph # (Auto) 3.52 H [place] # (Auto) 0.66 H Eos # (Auto) 0.11 Baso # (Auto) 0.01 PT 10.6 INR 1.0 APTT 25.9 PTT Ratio 1.0 Sodium 138 Potassium 3.6 Chloride 101 Carbon Dioxide 29 Anion Gap 8.0 BUN 17 Creatinine 1.23 Est Cr Clr Drug Dosing 97.4 Est GFR ( Amer) 89.5 Est GFR (Non-Af Amer) 77.2 BUN/Creatinine Ratio 13.8 Glucose 96 Calcium 9.1 Magnesium 2.2 Total Bilirubin 0.4 AST 15 ALT 23 Alkaline Phosphatase 67 Total Creatine Kinase 172 Troponin I < 0.015 Total Protein 8.4 H Albumin 4.2 Globulin 4.2 H Albumin/Globulin Ratio 1.0 Lipase 207 TSH 3.470 Urine Color Urine Appearance Urine pH Ur Specific [place] Urine Protein Urine Glucose (UA) Urine Ketones Urine Blood Urine Nitrite Urine Bilirubin Urine Urobilinogen Ur Leukocyte Esterase Urine Opiates Screen Ur Methadone, Qual Urine Barbiturates Ur Phencyclidine (PCP) U Amphetamin/Meth Scrn MDMA (Ecstasy) Screen U Benzodiazepines Scrn Ur Cocaine Metabolite U Marijuana (THC) Screen Lyme Disease IgG Ab Lyme Disease IgM Ab 01/25/19 01/26/19 01/26/19 23:12 06:30 06:30 WBC RBC Hgb Hct MCV MCH MCHC RDW Std Deviation RDW Coeff of Tyrese Plt Count MPV Immature Gran % (Auto) Neut % (Auto) Lymph % (Auto) [place] % (Auto) Eos % (Auto) Baso % (Auto) Immature Gran # (Auto) Neut # (Auto) Lymph # (Auto) [place] # (Auto) Eos # (Auto) Baso # (Auto) PT INR APTT PTT Ratio Sodium Potassium Chloride Carbon Dioxide Anion Gap BUN Creatinine Est Cr Clr Drug Dosing Est GFR ( Amer) Est GFR (Non-Af Amer) BUN/Creatinine Ratio Glucose Calcium Magnesium Total Bilirubin AST ALT Alkaline Phosphatase Total Creatine Kinase Troponin I Total Protein Albumin Globulin Albumin/Globulin Ratio Lipase TSH Urine Color Yellow Urine Appearance Clear Urine pH 7.5 Ur Specific [place] 1.018 Urine Protein Negative Urine Glucose (UA) Negative Urine Ketones Negative Urine Blood Negative Urine Nitrite Negative Urine Bilirubin Negative Urine Urobilinogen Negative Ur Leukocyte Esterase Negative Urine Opiates Screen Neg Ur Methadone, Qual Neg Urine Barbiturates Neg Ur Phencyclidine (PCP) Neg U Amphetamin/Meth Scrn Neg MDMA (Ecstasy) Screen Neg U Benzodiazepines Scrn Neg Ur Cocaine Metabolite Neg U Marijuana (THC) Screen Neg Lyme Disease IgG Ab Negative Lyme Disease IgM Ab Negative
[2019-01-26 10:25] VITALS: PULSE 64
[2019-01-26 10:43] LABS: Partial Thromboplastin Ratio 1.8
[2019-01-26 10:45] LABS: Partial Thromboplastin Time 48.5 Seconds (21.0-31.0)
--- NOTE | 2019-01-26 10:45 | Discharge Summary ---
Date of Service January 26, 2019 Admission HPI Per Admitting Provider History obtained from patient and records. Medical history significant for allergic rhinitis, migraine. Recent confinement under ENT service November 2011 for R parotidectomy for pleomorphic adenoma. 4 days ago patient was watching television when he felt transient palpitations lasting about 30 seconds associated with spasm-like discomfort in the left chest nonradiating. Spontaneous resolution. Some chest soreness after workout in the gym last week. Transient palpitations on 2 occasions in the last 12 years as per patient recollection. Patient consulted urgent care center 3 days ago for unusual heartbeat episode. EKG showed sinus bradycardia as per outpatient note. Consideration for Holter monitoring in the future. Patient and were having sex last night when he noted recurrence of uncomfortable palpitations this time associated with pleuritic right subcostal discomfort and shortness of breath. No cough symptoms. Usual caffeine intake, denies alcohol intake this week, usual stress at home /work, antihistaminic intake for allergies. At the ER, patient noted to be in rapid A. fib, cardiac rate 90-160s. Cardiac rate currently 90s after IV Metoprolol, Cardizem administration. Patient still uncomfortable from irregular heartbeat. Admission Exam Per Admitting Provider GENERAL: Comfortable, pleasant, slightly anxious, no respiratory distress SKIN: Normal color, warm HEENT: [place] palpebral conjunctivae, no ptosis, dry buccal mucosa NECK : Supple, no tenderness CHEST : CTA, no tenderness HEART : Tachycardic, irregular, no obvious murmurs ABDOMEN: Some distention, R upper quadrant tenderness EXTREMITIES : No LE swelling/tenderness, no other conspicuous deformities noted NEUROLOGIC : Coherent, no facial asymmetry, no other gross focality Principal Diagnosis Atrial fibrillation Discharge Exam General- oriented x 3, not in distress, speaks in sentences with no effort or accessory muscle use Head- atraumatic Eyes- PERRL, EOMI, anicteric ENT- oropharynx clear Neck- supple, no JVD, no adenopathy, no thyromegaly; carotids +2/2, no bruits appreciated Lungs- clear to auscultation bilaterally, no rales/wheezes Heart- normal rate, regular rhythm; no murmur, no gallop, no rub appreciated Abdomen- normal bowel sounds, nondistended, soft, nontender, no masses or hepatosplenomegaly Extremities- no pretibial edema, no calf tenderness; peripheral pulses intact Neuro- alert, oriented x 3; CN 2-12 grossly intact; motor 5/5 bilaterally;sensation 100% on all extremities; no other gross focal neurologic deficits Skin- warm & dry Discharge Data Allergies Allergy/AdvReac Type Severity Reaction Status Date / Time No Known Allergies Allergy Unverified 01/26/19 00:38 Consultations 01/26/19 01:53 ED Decision to Admit Stat 01/26/19 07:09 Consult Cardiology Routine Ordered Studies 01/26/19 02:34 CT angio chest PE protocol Urgent IMPRESSION: 1. No evidence for pulmonary embolus. 2. Mildly dilated main pulmonary artery measuring 3.4 cm in diameter. This raises the possibility of pulmonary arterial hypertension. Follow-up nonemergent echocardiogram is recommended for further evaluation. Hospital Course (1) New onset atrial fibrillation: CT Chest: No pulmonary embolism Echo: per Dr. Romero- Service Person: A bedside echocardiogram was performed, and my preliminary review of the images reveals normal LVEF, with normal myocardial thickness, there is no evidence of underlying left ventricular hypertrophy. -- converted to sinus rhythm the next day Service Person Dr. Romero consulted, recommend Metoprolol XL 25mg po daily, quality assurance monitor chassis in 1 week c/o Cardiology clinic Follow up with [facility] in 3-4 weeks Disposition ff up with PCP as outlined in DC instructions ff up with [facility] Service Person as outlined above plan of care discussed with patient and his at bedside in detail they are comfortable, understanding with the plan of care Total Time Total Time Spent Total Time Spent (In Minutes): 40 minutes Discharge Plan Discharge Items Patient Disposition: Home - Self-Care Reason For Visit: AFIB Discharge Diagnosis: ATRIAL FIBRILLATION Activity: As commented below Activity Comment: NO HEAVY EXERTION UNTIL RE-EVALUATED BY PRIMARY CARE PHYSICIAN Lifting: Wait until after follow-up appointment Exercise/Sports: Wait until after follow-up appointment Driving/Machine Use: NO DRIVING UNTIL RE-EVALUATED BY PRIMARY CARE PHYSICIAN Non-emergency contact: Primary Care Provider and Service Person Call non-emergency contact if: you have any medication questions, your symptoms worsen and you have a fever Follow-up/Referrals: Joby Romero DO [Service Person] - Diet: Heart Healthy Addtl Attending Provider Instructions: FOLLOW UP WITH PRIMARY CARE PHYSICIAN DR. GREGORIO HEREDIA (ASSOCIATE OF DR. BELTRÁN) ON WEDNESDAY JANUARY 30, 2019 AT AT 2:30PM. FOLLOW UP WITH [facility] [employer] FLIGHT ENGINEER DR. JOBY ROMERO IN 3-4 WEEKS. THE CLINIC WILL BE CALLING YOU FOR THE APPOINTMENT. HIS CLINIC WILL ALSO ARRANGE FOR YOUR MOBILE MANAGER PLACEMENT PRIOR TO THAT APPOINTMENT AND WILL BE CALLING YOU FOR THE APPOINTMENT SOON. ALWAYS STAY WELL HYDRATED. CALL PRIMARY CARE PHYSICIAN OR RETURN TO THE ER IMMEDIATELY IF WITH DIZZINESS, LIGHTHEADEDNESS, WEAKNESS, WORSENING OF SYMPTOMS. Pending Studies at Discharge: Yes Studies:: MOBILE MANAGER PLACEMENT IN 1 WEEK C/O [facility] Stand-Alone Forms: My [facility] [employer], Smoking Cessation Medications and DC Order Prescriptions: New metoprolol succinate 25 mg Tablet Extended Release 24 Hr 25 mg PO QAM 30 Days Qty: 30 RF: 2 Continued loratadine 10 mg tablet 10 mg PO DAILY RF: 0 fluticasone propionate 50 mcg/actuation spray,suspension 2 spray intranasal DAILY RF: 0 Discharge Orders: Discharge Order (Routine); Ordered 01/26/19 Ordered By: Rosalio Granados/Other Patient Handouts: Metoprolol Succinate Oral tablet extended-re lease, Fibrillation Atrial Dc Admission Data Admit Date/Time: 01/26/19 02:37 Attending Provider: Rosalio Hardin Admit Provider: Yonis Mcnair Primary Care Provider: Luis Eduardo Beltrán Other Providers: Yonis Mcnair ; Jaskaran Owen Other Interventions: Discharge Summary Assessment (RN) Last Done: 01/26/19 10:24 DC Date/Time DO NOT enter until pt leaves facility: 01/26/19 11:02
== END 2019-01-26 11:02 | disposition home or self-care (01) | DRG 310 ==
LOC: ED 22:55 → 2S 01-26 02:37 → SUATTDRO 01-26 02:37 → 2S 01-26 03:16